=== PATIENT | female | born 1955 | race Caucasian/White ===

== ENCOUNTER 2017-08-18 13:21 | Emergency (ER) | payer OTHER ==
[2017-08-18 14:06] VITALS: BP 124/86
--- NOTE | 2017-08-18 15:08 | UC ---
Complaint Male HPI - HPI Summary HPI Summary: 61 year old femalw with UTI Sx. c/o frequency with uriation that started 5 days ago. Took Azo, and is from [place]. Had uTI In june back at home and now same Sx returned . no fever, no vomiting or diarrhea, no fever or chills. no flank pain. [ End ] - History of Current Complaint Chief Complaint: UCGU Stated Complaint: URINARY COMPLAINT Time Seen by Provider: 08/18/17 14:58 Hx Obtained From: Patient Onset/Duration: Gradual Onset Timing: Constant Severity Initially: Mild Severity Currently: Mild Location: Suprapubic Aggravating Factor(s): Voiding Associated Signs And Symptoms: Positive: Dysuria - Allergies/Home Medications Allergies/Adverse Reactions: Allergies Allergy/AdvReac Type Severity Reaction Status Date / Time Erythromycin Allergy Hives Verified 08/18/17 13:56 Penicillins Allergy Anaphylatic Verified 08/18/17 13:56 Shock Sulfa Antibiotics Allergy Hives Verified 08/18/17 13:56 Home Medications: Home Medications Cholecalciferol [Vitamin D] 50,000 unit PO WEEKLY 08/18/17 [History Confirmed ] Levothyroxine TAB* [Synthroid 100 MCG TAB*] 100 mcg PO DAILY 08/18/17 [History Confirmed 08/18/17] Losartan TAB* [Cozaar TAB*] 100 mg PO DAILY 08/18/17 [History Confirmed 08/18/17 ] Pantoprazole TAB (NF) [Protonix TAB (NF)] 40 mg PO DAILY 08/18/17 [History Confirmed 08/18/17] Phenazopyridine TAB* [Pyridium 100 mg TAB*] 95 mg PO TID PRN 08/18/17 [History Confirmed 08/18/17] PMH/Surg Hx/FS Hx/Imm Hx Endocrine History: Hypothyroidism Cardiovascular History: Hypertension GI/ History: Gastroesophageal Reflux - Surgical History Surgical History: Yes Surgery Procedure, Year, and Place: sigmoid reconstruction. hysterectomly. chol. THR Right. wrist. elbow - Family History Known Family History: Negative: Cardiac Disease - Social History Occupation: Retired Alcohol Use: None Substance Use Type: None Smoking Status (MU): Never Smoked Tobacco Review of Systems Genitourinary: Dysuria, Hematuria, Frequency, Urgency All Other Systems Reviewed And Are Negative: Yes Physical Exam Triage Information Reviewed: Yes Appearance: Well-Appearing, No Pain Distress, Well-Nourished Vital Signs: Initial Vital Signs Temp 99.7 F 08/18/17 14:00 Pulse 75 08/18/17 14:00 Resp 18 08/18/17 14:00 BP 124/86 08/18/17 14:00 Pulse Ox 100 08/18/17 14:00 Vital Signs Reviewed: Yes Eye Exam: Normal ENT Exam: Normal Dental Exam: Normal Neck exam: Normal Neck: Positive: 1 Respiratory Exam: Normal Cardiovascular Exam: Normal Abdominal Exam: Normal, Other - suprapubic tenderness Abdomen Description: Positive: Soft. Negative: CVA Tenderness (R), CVA Tenderness (L) Bowel Sounds: Positive: Present Musculoskeletal Exam: Normal Neurological Exam: Normal Psychological Exam: Normal Skin Exam: Normal Complaint Male Course/Dx - Course Course Of Treatment: Start abx based on clinical Sx but with Azo can not perform U/A at this time as POC. Start meds and stop if neg Cx. - Differential Dx/Diagnosis Differential Diagnosis/HQI/PQRI: Pyelonephritis, Urinary Tract Infection Provider Diagnoses: UTI Discharge - Discharge Plan Condition: Good Disposition: HOME Prescriptions: Nitrofurantoin Monohyd Macro [Macrobid] 100 mg PO BID #14 cap Phenazopyridine 200 mg (NF) [Pyridium 200 MG tab *] 200 mg PO TID PRN #20 tab PRN Reason: Pain Patient Education Materials: Urinary Tract Infection in Women (ED) Referrals: Non Staff,Doctor [Primary Care Provider] - 5 Days
[2017-08-18 19:02] LABS: Urine Bacteria Absent (Absent); Urine Bilirubin Negative (Negative); Urine Glucose Negative (Negative); Urine Nitrite Positive (Negative)
--- NOTE | 2017-08-21 10:32 | UC ---
Progress - Progress Note Progress Note: Pt with neg UC please call pt to d/c abx f/u with pcp as needed Nicola 08/21/17
== END 2017-08-18 15:17 | disposition home or self-care (01) ==
LOC: UCCORT 13:21
DX: N39.0 Urinary tract infection, site not specified (principal); Z88.0 Allergy status to penicillin; Z88.2 Allergy status to sulfonamides; E03.9 Hypothyroidism, unspecified; I10 Essential (primary) hypertension; K21.9 Gastro-esophageal reflux disease without esophagitis
CPT/HCPCS: 81003; 81015; 87086; 99202; G0463